=== PATIENT | male | born 1995 | race Caucasian/White ===

== ENCOUNTER 2017-03-31 13:45 | Emergency (ER) | payer OTHER ==
[2017-03-31 13:56] VITALS: O2SAT 100
[2017-03-31] MEDS ORDERED: Lidocaine 5% Patch TD STA (14:29)
[2017-03-31] MEDS ORDERED: Lidocaine 5% Patch TD ONE (14:35)
--- NOTE | 2017-03-31 15:41 | C.PDOC ---
Time Seen by Provider: 03/31/17 14:15 Chief Complaint (Nursing): Back Pain Past Medical History Vital Signs: Last Vital Signs Temp 98.0 F 03/31/17 13:52 Pulse 88 03/31/17 13:52 Resp 20 03/31/17 13:52 BP 146/90 03/31/17 13:52 Pulse Ox 100 03/31/17 13:52 - Social History Hx Alcohol Use: Yes Hx Substance Use: No - Immunization History Hx Tetanus Toxoid Vaccination: Yes Hx Influenza Vaccination: No Hx Pneumococcal Vaccination: No ED Course And Treatment O2 Sat by Pulse Oximetry: 100 Disposition Counseled Patient/Family Regarding: Diagnosis, Need For Followup, Rx Given - Disposition Disposition: Trans to Other Acute Care Hosp Disposition Time: 15:39 Condition: STABLE Prescriptions: Cyclobenzaprine [Cyclobenzaprine HCl] 10 mg PO TID #15 tab Ibuprofen [Motrin] 600 mg PO TID #15 tab Lidocaine 5% [Lidoderm] 1 ea TD DAILY #2 patch Instructions: Chronic Back Pain (ED), Back Exercises (ED) Forms: [employer] (Maldivian), General Discharge Instructions, Work Excuse - POA Present On Arrival: None - Clinical Impression Clinical Impression: Low back pain
[2017-03-31 15:46] VITALS: BP 137/88; PULSE 79; RESP 18; TEMP 98.1
== END 2017-03-31 15:46 | disposition home or self-care (01) ==
LOC: C.ER 13:45
DX: M54.5 Low back pain (principal)

== ENCOUNTER 2018-06-20 16:14 | Emergency (ER) | payer OTHER ==
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
[2018-06-20] MEDS ORDERED: Sodium Chloride 0.9% 1,000 ML IV ONE (16:47)
[2018-06-20] MEDS ORDERED: Tdap Vaccine 0.5 ml Vial (10-64 yrs) IM ONE ×2 (16:55→17:45)
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
[2018-06-20 17:32] LABS: BASO % 0.4 % (0.0-2.0); EOS % 0.6 % (0.0-4.0); HEMOGLOBIN 16.7 g/dL (12.0-18.0); LYMPH # 2.6 K/uL (1.0-4.3); LYMPH % 33.7 % (20.0-40.0); MEAN CELL VOLUME 87.8 fL (80.0-94.0); MEAN CORPUSCULAR HEMOGLOBIN 29.3 pg (27.0-31.0); MEAN CORPUSCULAR HGB CONC 33.4 g/dL (33.0-37.0); MONO # 0.4 K/uL (0.0-0.8); MONO % 5.7 % (0.0-10.0); NEUT # 4.5 K/uL (1.8-7.0); NEUT % 59.6 % (50.0-75.0); RBC 5.69 Mil/uL (4.40-5.90); RED CELL DISTRIBUTION WIDTH 12.2 % (11.5-14.5); WHITE BLOOD COUNT 7.6 K/uL (4.8-10.8)
[2018-06-20 17:44] LABS: ALB/GLOB RATIO 1.6 (1.0-2.1); ALBUMIN 5.4 g/dL (3.5-5.0); ALT/SGPT 26 U/L (21-72); AST/SGOT 32 U/L (17-59); BLOOD UREA NITROGEN 8 mg/dL (9-20); CALCIUM 9.7 mg/dl (8.6-10.4); GFR NON-AFRICAN AMERICAN > 60
[2018-06-20] MEDS ORDERED: Iodixanol 320 MG/ML 100 ML BOTTLE IV ONE (19:14)
[2018-06-20 21:15] VITALS: BP 116/64; PULSE 64; RESP 20; TEMP 98.4; O2SAT 100
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
== END 2018-06-20 22:42 | disposition home or self-care (01) ==
LOC: C.ER 16:14
DX: S93.601A Unspecified sprain of right foot, initial encounter (principal); S91.311A Laceration without foreign body, right foot, initial encounter; V28.0XXA Motorcycle driver injured in noncollision transport accident in nontraffic accident, initial encounter; M79.671 Pain in right foot; N28.1 Cyst of kidney, acquired; R10.30 Lower abdominal pain, unspecified
CPT/HCPCS: 70450; 71046; 72125; 73630; 74177; 80053; 85025; 86850; 86900; 90471; 90715; 99285; Q9967